=== PATIENT | female | born 1950 | race Caucasian/White ===

== ENCOUNTER → 2017-06-30 | Day surgery (SDC) | payer MEDICARE ==
[~2017-06-30] MED LIST: BUPIVACAINE HCL PF 0.5% 30 ML VIAL ONE; CARV6.252 PO; CHLORHEXIDINE GLUCONATE 2 % 1 PACK (2 CLOTHS) TOPICAL PRN; FAMOTIDINE 20 MG/2 ML VIAL ONE; HYDR12.57 PO; INSULIN HUMAN REGULAR 1,000 UNITS/10 ML VIAL SQ PRN; LACTATED RINGER'S 1000 ML INJ 1,000 ML IV ONE; LACTATED RINGER'S 1000 ML IV PRN; LEVO88TA2 PO; LIDOCAINE HCL 2% 50 ML VIAL ONE; METOPROLOL TARTRATE 25 MG TAB PO PRN; MIDAZOLAM HCL 2 MG/2 ML VIAL ONE; NEOMYCIN/POLYMYXIN 1 ML G.U. IRRIGANT ONE; NORC5TAB PO; POVIDONE IODINE 5% (ANTISEPSIS KIT) 4 APPLICATIONS EACH NARE PRN; PROPOFOL 200 MG/20 ML AMP IV ONE; PROZ20CA11 PO; SODIUM CHLORID 0.9% 500 ML IV PRN; ceFAZolin 1,000 MG/NS 100 ML IV SCH
[2017-06-30 10:12] LABS: HEMATOCRIT 37.8 % (35.0-46.0); MEAN CELL VOLUME 92.4 FL (80.0-100.0); MEAN CORPUSCULAR HEMOGLOBIN 31.3 PG (27.0-34.0); MEAN CORPUSCULAR HGB CONC 33.9 % (32.0-36.0); PLATELET COUNT 187 TH/MM3 (150-450); RED BLOOD COUNT 4.09 MIL/MM3 (4.00-5.30); RED CELL DISTRIBUTION WIDTH 12.9 % (11.6-17.2); WHITE BLOOD COUNT 5.8 TH/MM3 (4.0-11.0)
[2017-06-30 10:13] LABS: REVIEW FLAG FINAL
[2017-06-30 11:55] VITALS: BP 138/65; PULSE 68; RESP 16; TEMP 98.4; O2SAT 98
--- NOTE | 2017-06-30 12:28 | MP ---
cc: NEGRITO PONCE III, M.D. DATE OF SURGERY 06/30/2017 PREOPERATIVE DIAGNOSIS Left thumb mass. POSTOPERATIVE DIAGNOSIS Left thumb mass. PROCEDURE Left thumb mass excisional biopsy. SURGEON Negrito Ponce III, MD PROCEDURE The patient was brought to the operating room, placed supine on the operating room table. After the correct site and side of surgery were verified by members of each team in the room multiple times including the patient and myself, and after adequate preoperative markings and preoperative written consent were verified by everyone and after an adequate preoperative time-out was performed to everyone's satisfaction and after adequate IV sedation had been achieved, the left upper extremity was prepped and draped in the traditional sterile surgical fashion. A 50/50 mixture of 2% plain lidocaine and 0.5% plain Marcaine was infiltrated through the skin and subcutaneous tissue at the metacarpal level near the first webspace. This created a digital block on the ulnar side of the thumb. The two smallest fingers from a six 6 sterile latex free glove were used as a finger tourniquet. A transversely oriented incision made within the skin creases was made overlying the mass. Blunt and sharp dissection were then used as well as bipolar electrocautery and a very heterogeneous mass was excised in its entirety and passed off the field as a specimen. It was soft and very malleable and appeared to be somewhat vascular in nature. The finger tourniquets were then released. There was no active bleeding, but the thumb became immediately soft, pink, and warm and had brisk capillary refill of less two seconds. Attenuated overgrown skin was then sharply excised to create a nicer closure which was then done after a liters worth of saline was used to irrigate out the wound and then 5-0 nylon was used to reapproximate the skin edges in a running fashion. The hand and arm were thoroughly cleansed and dried. Betadine and Adaptic dressings were applied on top of the wound, followed by a bulky soft dressing. The patient was awakened from anesthesia and transported to the Post Anesthesia Care Unit awake and in stable condition at the end of the case. The sponge, needle and instrument counts were correct at the end of the case as reported by nurses in the room. MD EDMOND Hardin III/BENJAMIN /11:12 AM /12:21 PM
--- NOTE | 2017-06-30 14:39 | EKG ---
Date Performed: 06/30/2017 Time Performed: 10:14:43 PTAGE: 67 years EKG: ECTOPIC ATRIAL RHYTHM WITH SHORT MA INTERVAL WITH OCCASIONAL SUPRAVENTRICULAR PREMATURE COM PLEXES MODERATE ST DEPRESSION ABNORMAL ECG NO PREVIOUS TRACING DOCTOR: Wilner Larry Interpretating Date/Time 06/30/2017 14:36:05
== END | disposition home or self-care (01) ==
LOC: PHSDC 08:25
PROVIDERS: ATTEND Orthopaedic Surgery Hand Surgery
DX: D18.01 Hemangioma of skin and subcutaneous tissue (principal); I10 Essential (primary) hypertension; E78.5 Hyperlipidemia, unspecified; Z01.818 Encounter for other preprocedural examination; Z01.810 Encounter for preprocedural cardiovascular examination
CPT/HCPCS: 00400; 26115; 36415; 85027; 88305; 93005; J0690; J2250; J7120